=== PATIENT | female | born 1990 | race Caucasian/White ===

== ENCOUNTER 2020-07-07 07:50 | Emergency (ER) | payer OTHER, SELFPAY ==
--- NOTE | 2020-07-07 | US_ITS ---
EXAMINATION: ULTRASOUND OF THE PELVIS CLINICAL INFORMATION: Left pelvic pain. Rule out cyst. COMPARISON: CT 05/27/2019. TECHNIQUE: Transabdominal and transvaginal pelvic ultrasound. Doppler evaluation with spectral analysis was performed. A transvaginal study was performed in addition to the transabdominal study which did not yield an adequate examination of the uterus and ovaries due to superimposed distended gas-filled loops of bowel. FINDINGS: The uterus is normal in size and appearance, measuring 7.9 x 4.5 x 4.6 cm longitudinally, anteroposteriorly and transversely. The endometrial stripe thickness is normal, measuring 0.7 cm in thickness. No focal myometrial mass is seen. Nabothian cysts at the cervix. Fluid in the cervix. The ovaries bilaterally are visualized and appear normal, with the right ovary measuring 2.7 x 1.3 x 1.8 cm and the left ovary measuring 3.5 x 2.6 x 2.3 cm. There are normal arterial and venous spectral waveforms bilaterally. Dominant left ovarian follicle measures 2.4 cm. Small volume of pelvic free fluid. US/US transvaginal IMPRESSION: No evidence of active ovarian torsion at this time. Multiple left ovarian follicles with the dominant follicle measuring up to 2.4 cm. No suspicious mass. Small volume of pelvic free fluid may be physiologic.
--- NOTE | ~2020-07-07 | CT_ITS ---
EXAMINATION: CT ABDOMEN AND PELVIS WITHOUT CONTRAST CLINICAL INFORMATION: Left flank pain. Rule out kidney stone. COMPARISON: 05/27/2019 TECHNIQUE: Multidetector volumetric imaging was performed from the superior aspect of the liver through the pubic symphysis. Sagittal and coronal reformatted images were obtained on the technologist's workstation. This CT examination was performed using dose optimization techniques as appropriate, variously including the following: *Automated exposure control *Adjustment of mA and/or kV according to patient size (this includes techniques or standardized protocols for targeted exams where dose is matched to indication/reason for exam; i.e. extremities or head) *Use of iterative reconstruction technique DLP: 1237 mGy-cm FINDINGS: LUNG BASES: The visualized lung bases are unremarkable. LIVER, GALLBLADDER, AND BILIARY TREE: The liver is normal in size, shape, and attenuation. No focal hepatic lesion or biliary ductal dilatation is present. Cholecystectomy. PANCREAS: Unremarkable. SPLEEN: Unremarkable. ADRENAL GLANDS: Unremarkable. KIDNEYS AND URETERS: The kidneys are normal in size, shape, and attenuation. No hydronephrosis, hydroureter, or calculi seen. No perinephric stranding. BLADDER: Unremarkable. GASTROINTESTINAL TRACT: The stomach is unremarkable. Normal caliber small bowel. There is no obstruction. Normal appendix. There is colonic diverticulosis present, greatest through the descending and sigmoid colon. There is focal wall thickening with an inflamed diverticulum at the descending colon. Prominent surrounding inflammation with small amount of fluid. No fluid collection. No free air. ABDOMINAL WALL: No significant hernia is appreciated. LYMPH NODES: Normal. VASCULAR: Unremarkable. PELVIC VISCERA: The uterus and adnexa are unremarkable. OSSEOUS STRUCTURES: No acute or suspicious osseous abnormality. Mild degenerative changes at the lower thoracic spine. CT/CT abdomen pelvis wo con IMPRESSION: Diverticulitis of the descending colon. No free air or fluid collection. No hydronephrosis or nephrolithiasis.
[2020-07-07 09:05] VITALS: BP 132/82; PULSE 82; RESP 18; TEMP 36.8; O2SAT 100; BMI 49.2
--- NOTE | 2020-07-07 09:57 | US_ITS ---
EXAMINATION: ULTRASOUND OF THE PELVIS CLINICAL INFORMATION: Left pelvic pain. Rule out cyst. COMPARISON: CT 05/27/2019. TECHNIQUE: Transabdominal and transvaginal pelvic ultrasound. Doppler evaluation with spectral analysis was performed. A transvaginal study was performed in addition to the transabdominal study which did not yield an adequate examination of the uterus and ovaries due to superimposed distended gas-filled loops of bowel. FINDINGS: The uterus is normal in size and appearance, measuring 7.9 x 4.5 x 4.6 cm longitudinally, anteroposteriorly and transversely. The endometrial stripe thickness is normal, measuring 0.7 cm in thickness. No focal myometrial mass is seen. Nabothian cysts at the cervix. Fluid in the cervix. The ovaries bilaterally are visualized and appear normal, with the right ovary measuring 2.7 x 1.3 x 1.8 cm and the left ovary measuring 3.5 x 2.6 x 2.3 cm. There are normal arterial and venous spectral waveforms bilaterally. Dominant left ovarian follicle measures 2.4 cm. Small volume of pelvic free fluid. US/US pelvic complete IMPRESSION: No evidence of active ovarian torsion at this time. Multiple left ovarian follicles with the dominant follicle measuring up to 2.4 cm. No suspicious mass. Small volume of pelvic free fluid may be physiologic.
--- NOTE | 2020-07-07 09:57 | US_ITS ---
EXAMINATION: ULTRASOUND OF THE PELVIS CLINICAL INFORMATION: Left pelvic pain. Rule out cyst. COMPARISON: CT 05/27/2019. TECHNIQUE: Transabdominal and transvaginal pelvic ultrasound. Doppler evaluation with spectral analysis was performed. A transvaginal study was performed in addition to the transabdominal study which did not yield an adequate examination of the uterus and ovaries due to superimposed distended gas-filled loops of bowel. FINDINGS: The uterus is normal in size and appearance, measuring 7.9 x 4.5 x 4.6 cm longitudinally, anteroposteriorly and transversely. The endometrial stripe thickness is normal, measuring 0.7 cm in thickness. No focal myometrial mass is seen. Nabothian cysts at the cervix. Fluid in the cervix. The ovaries bilaterally are visualized and appear normal, with the right ovary measuring 2.7 x 1.3 x 1.8 cm and the left ovary measuring 3.5 x 2.6 x 2.3 cm. There are normal arterial and venous spectral waveforms bilaterally. Dominant left ovarian follicle measures 2.4 cm. Small volume of pelvic free fluid. US/US pelvic ovarian doppler IMPRESSION: No evidence of active ovarian torsion at this time. Multiple left ovarian follicles with the dominant follicle measuring up to 2.4 cm. No suspicious mass. Small volume of pelvic free fluid may be physiologic.
--- NOTE | 2020-07-07 09:58 | ED.GENADULT ---
HPI - General Adult General Chief complaint: Abdominal Pain Stated complaint: abd pain Time Seen by Provider: 07/07/20 09:55 Related Data Allergies Allergy/AdvReac Type Severity Reaction Status Date / Time No Known Allergies Allergy Verified 07/07/20 09:04 [No Known Allergies*] PENDING SALE TO [facility] Past Medical History Medical History (Updated 07/07/20 @ 09:08 by Maren Linares) Fibromyalgia Hiatal hernia Ovarian cyst PCOS (polycystic ovarian syndrome) Social History Social History Alcohol intake: never Smoking Status: Never smoker Use of substances other than those prescribed or required for medical reasons: Yes Substance Use Type: Marijuana Advance Directives: No Advance Directives Information Provided: No Physical Exam Vital Signs: Vital Signs: Last Vital Signs Temp 98.3 F 07/07/20 09:05 Pulse 82 07/07/20 09:05 Resp 18 07/07/20 09:05 BP 132/82 07/07/20 09:05 Pulse Ox 100 07/07/20 09:05 Body Mass Index 49.2 Course Course Course Narrative: [id number]-This is rapid medical exam. 29 yo female with past medical history of PCOS, ovarian cysts here with left pelvic pain x 5-6 hrs. H/o ovarian cysts and feels similar. Irregular menses so unsure of . Will check labs, UA, ur , pelvic US. Deferred additional HPI, ROS and PE to primary provider.
[2020-07-07 10:20] LABS: Glucose Urine UA NEG (NEG); Leukocyte Esterase Urine NEG (NEG); Nitrite Urine NEG (NEG); PH 6.5 (5.0-8.0); Specific Gravity - Urine 1.025 (1.005-1.025); Urine Blood NEG (NEG); Urine Ketones NEG (NEG); Urine Protein NEG (NEG-TRACE)
[2020-07-07 10:22] LABS: Appearance Urine CLEAR; Color Urine YELLOW
[2020-07-07 10:23] LABS: UPreg QC Valid YES; Urine Pregnancy NEGATIVE (NEGATIVE)
[2020-07-07 10:44] LABS: MANUAL DIFF FLAG NO
[2020-07-07 10:47] LABS: Basophils Percent Auto 0.2 % (0-2); Eosinophils Absolute Auto 0.1 X10*3/uL (0.0-0.4); Eosinophils Percent Auto 0.7 % (0-4); Hematocrit 38.4 % (37-47); Hemoglobin 11.9 g/dl (12.0-16.0); Imm Gran Abs Auto 0.04 X10*3/uL (0.00-0.03); Imm Gran Pct Auto 0.3 % (0.0-0.4); Lymphocytes Absolute Auto 2.6 X10*3/uL (1.2-4.9); Lymphocytes Percent Auto 20.9 % (20-40); Mean Corpuscular Hemoglobin 24.6 pg (27.0-33.0); Mean Corpuscular Volume 79.3 fL (80-98); Mean Platelet Volume 10.7 fL (9.4-12.3); Monocytes Absolute Auto 0.6 X10*3/uL (0.1-1.2); Monocytes Percent Auto 4.9 % (2-11); Platelet Count 254 X10*3/uL (160-400); Red Blood Count 4.84 X10*6/uL (4.20-5.50); Red Cell Distribution Width 15.1 % (11.0-16.0); White Blood Count 12.3 X10*3/uL (4.8-10.8)
[2020-07-07 11:07] LABS: Anion Gap 13 (12-20); Blood Urea Nitrogen 11 mg/dL (9-16); Calcium 8.5 mg/dL (8.4-10.2); Carbon Dioxide 27 mmol/L (22-29); Chloride 100 mmol/L (96-108); Creatinine Clr Calc Pharmacy 150.9; Estimated Glomerular Filt Rate > 60; Glucose Random 109 mg/dL (60-115); Potassium 4.1 mmol/L (3.3-5.1); Sodium 136 mmol/L (135-145)
--- NOTE | 2020-07-07 13:50 | ED.ABDPAIN ---
HPI - Abdominal Pain General Chief Complaint: Abdominal Pain Stated Complaint: abd pain Time Seen by Provider: 07/07/20 09:55 Source: patient Mode of arrival: ambulatory Limitations: no limitations History of Present Illness HPI narrative: 29-year-old female presented with 1 day of left-sided abdominal pain, patient describes the pain as sharp pain in the left lower abdomen radiates to the left flank area, pain is constant since yesterday and progressively is worsening pain started as 5/10 now pain is 9/10, associated with nausea and pressure in the rectum area but no vomiting or diarrhea or frequency urination or dysuria, no vaginal bleed, no vaginal discharge. Pain is worsening by taking a deep breath or movement, nothing relieves the pain. Related Data Previous Rx's Medication Instructions Recorded ciprofloxacin HCl [Cipro] 500 mg PO BID #20 tab 07/07/20 metronidazole [Flagyl] 500 mg PO BID #20 tab 07/07/20 oxycodone 5 mg PO Q8H PRN #10 cap 07/07/20 Allergies Allergy/AdvReac Type Severity Reaction Status Date / Time No Known Allergies Allergy Verified 07/07/20 09:04 [No Known Allergies*] Review of Systems Review of Systems All other systems are reviewed and are negative Constitutional: Reports as per HPI and Reports no additional constitutional complaints Eyes: Reports as per HPI and Reports no additional eye complaints Reports system reviewed and no additional complaints, except as documented Cardiovascular: Reports as per HPI and Reports no additional cardiovascular complaints Respiratory: Reports as per HPI and Reports no additional respiratory complaints Gastrointestinal: Reports as per HPI and Reports no additional gastrointestinal complaints Genitourinary: Reports no additional female genitourinary complaints Musculoskeletal: Reports no additional musculoskeletal complaints Skin/Breast: Reports system reviewed and no additional complaints, except as docu Psychiatric: Reports no additional psychiatric complaints Endocrine: Reports no additional endocrine complaints Hematologic/Lymphatic: Reports no additional hematologic/lymphatic complaints Allergic/Immunologic: Reports no additional allergic/immunologic complaints Reports system reviewed and no additional complaints, except as documented and Reports Abnormal speech present Physical Exam Vital Signs: Vital Signs: Last Vital Signs Temp 98.5 F 07/07/20 14:36 Pulse 109 H 07/07/20 14:36 Resp 18 07/07/20 15:06 BP 150/87 H 07/07/20 14:36 Pulse Ox 100 07/07/20 14:36 Body Mass Index 49.2 Vital signs have been reviewed as normal and appeared to be correct. Blood pressure normal. Heart rate normal. Respiration rate normal. Temperature normal. Oxygen saturation normal. Appearance: Alert. Oriented X3. No acute distress. Head: Normal external exam. Normocephalic. Atraumatic. No Aranda signs noted. No raccoon eyes noted Eyes: PERRLA. EOMI. Conjunctiva and sclera normal. Eyelids normal. ENT: . TM's Normal. Pharynx normal. Uvula midline. Moist mucous membranes. No trismus noted. No drooling noted. No muffled voice noted. Neck: Normal inspection. Neck supple. FROM. No adenopathy. Thyroid Normal. No meningeal signs. No neck mass noted. CVS: Normal heart rate and rhythm. Heart sound normal. No murmurs noted. Pulses normal throughout. Respiratory: No respiratory distress. Painless inspiration. Breath sounds normal. No wheezes/rales/rhonchi noted. Chest nontender. No accessory muscle usage noted or decreased air movement noted. Abdomen: Soft, left lower quadrant tenderness, no rebound tenderness, no guarding.. Bowel sounds normal in all 4 quadrants. No distention noted. No organomegaly noted. No visible injury noted. Back: No CVA tenderness. Full range of motion noted. Skin: Skin warm and dry. Normal skin color. Normal skin turgor. No rashes/lesions/lacerations noted. Extremities: No lower extremity edema. Extremities exhibit normal range of motion. Extremities nontender. Neuro: Oriented X 3. No motor deficit. No sensory deficit. Reflexes normal. Course Course Course Narrative: Assessment and plan. 29-year-old female came in with left-sided abdominal pain CT/physical exam is consistent with acute diverticulitis. Patient appear stable will discharge the patient on p.o. antibiotic (Flagyl, Cipro) and pain medication, patient was instructed to continue with clear diet and avoid any foods with seeds. Patient also was instructed to follow-up with PCP and get elective follow-up with GI outpatient consultation. Patient was instructed to return immediately if pain is not going away or worsening of her symptoms. MDM - Abdominal Pain Lab Data Attestation: I reviewed the patient's lab results. Result diagrams: 07/07/20 10:30 07/07/20 10:30 Labs: Lab Results 02/09/2107/07/20 07/07/20 Range/Units 10:09 10:30 10:30 WBC 12.3 H (4.8-10.8) X10*3/uL RBC 4.84 (4.20-5.50) X10*6/uL Hgb 11.9 L (12.0-16.0) g/dl Hct 38.4 (37-47) % MCV 79.3 L (80-98) fL MCH 24.6 L (27.0-33.0) pg MCHC 31.0 (31.0-35.0) g/dl RDW 15.1 (11.0-16.0) % Plt Count 254 (160-400) X10*3/uL MPV 10.7 (9.4-12.3) fL Immature Gran % (Auto) 0.3 (0.0-0.4) % Neut % (Auto) 73.0 (45-73) % Lymph % (Auto) 20.9 (20-40) % [place] % (Auto) 4.9 (2-11) % Eos % (Auto) 0.7 (0-4) % Baso % (Auto) 0.2 (0-2) % Lymph # (Auto) 2.6 (1.2-4.9) X10*3/uL [place] # (Auto) 0.6 (0.1-1.2) X10*3/uL Eos # (Auto) 0.1 (0.0-0.4) X10*3/uL Baso # (Auto) 0.0 (0.0-0.2) X10*3/uL Abs Immat Gran (auto) 0.04 H (0.00-0.03) X10*3/uL Absolute Neuts (auto) 9.0 H (2.0-8.3) X10*3/uL Absolute Nucleated RBC 0.000 (0.0-0.012) X10*3/uL Nucleated RBC % (auto) 0.0 (0.0-0.2) /100WBC Hold Blue Top SEE NOTE Sodium (135-145) mmol/L Potassium (3.3-5.1) mmol/L Chloride (96-108) mmol/L Carbon Dioxide (22-29) mmol/L Anion Gap (12-20) BUN (9-16) mg/dL Creatinine (0.5-1.4) mg/dL Estim Creat Clear Calc Estimated GFR Random Glucose (60-115) mg/dL Calcium (8.4-10.2) mg/dL Total Bilirubin (0.0-1.0) mg/dL Direct Bilirubin (0.0-0.5) mg/dL AST (5-31) U/L ALT (0-31) U/L Alkaline Phosphatase (39-117) U/L Total Protein (6.5-8.0) g/dL Albumin (3.5-5.0) g/dL Lipase (8-78) U/L Urine Color YELLOW Urine Appearance CLEAR Urine pH 6.5 (5.0-8.0) Ur Specific Jackson 1.025 (1.005-1.025) Urine Protein NEG (NEG-TRACE) MG/DL Urine Glucose (UA) NEG (NEG) MG/DL Urine Ketones NEG (NEG) MG/DL Urine Blood NEG (NEG) Urine Nitrite NEG (NEG) Ur Leukocyte Esterase NEG (NEG) Urine Test NEGATIVE (NEGATIVE) 07/07/20 Range/Units 10:30 WBC (4.8-10.8) X10*3/uL RBC (4.20-5.50) X10*6/uL Hgb (12.0-16.0) g/dl Hct (37-47) % MCV (80-98) fL MCH (27.0-33.0) pg MCHC (31.0-35.0) g/dl RDW (11.0-16.0) % Plt Count (160-400) X10*3/uL MPV (9.4-12.3) fL Immature Gran % (Auto) (0.0-0.4) % Neut % (Auto) (45-73) % Lymph % (Auto) (20-40) % [place] % (Auto) (2-11) % Eos % (Auto) (0-4) % Baso % (Auto) (0-2) % Lymph # (Auto) (1.2-4.9) X10*3/uL [place] # (Auto) (0.1-1.2) X10*3/uL Eos # (Auto) (0.0-0.4) X10*3/uL Baso # (Auto) (0.0-0.2) X10*3/uL Abs Immat Gran (auto) (0.00-0.03) X10*3/uL Absolute Neuts (auto) (2.0-8.3) X10*3/uL Absolute Nucleated RBC (0.0-0.012) X10*3/uL Nucleated RBC % (auto) (0.0-0.2) /100WBC Hold Blue Top Sodium 136 (135-145) mmol/L Potassium 4.1 (3.3-5.1) mmol/L Chloride 100 (96-108) mmol/L Carbon Dioxide 27 (22-29) mmol/L Anion Gap 13 (12-20) BUN 11 (9-16) mg/dL Creatinine 0.77 (0.5-1.4) mg/dL Estim Creat Clear Calc 150.9 Estimated GFR > 60 Random Glucose 109 (60-115) mg/dL Calcium 8.5 (8.4-10.2) mg/dL Total Bilirubin 0.5 (0.0-1.0) mg/dL Direct Bilirubin 0.2 (0.0-0.5) mg/dL AST 16 (5-31) U/L ALT 18 (0-31) U/L Alkaline Phosphatase 118 H (39-117) U/L Total Protein 7.1 (6.5-8.0) g/dL Albumin 4.1 (3.5-5.0) g/dL Lipase 14 (8-78) U/L Urine Color Urine Appearance Urine pH (5.0-8.0) Ur Specific Jackson (1.005-1.025) Urine Protein (NEG-TRACE) MG/DL Urine Glucose (UA) (NEG) MG/DL Urine Ketones (NEG) MG/DL Urine Blood (NEG) Urine Nitrite (NEG) Ur Leukocyte Esterase (NEG) Urine Test (NEGATIVE) Imaging Data Pelvic ultrasound: Radiologist's impression: No evidence of active ovarian torsion at this time. Multiple left ovarian follicles with the dominant follicle measuring up to 2.4 cm. No suspicious mass. Small volume of pelvic free fluid may be physiologic. CT scan - abdomen: Radiologist's impression: Diverticulitis of the descending colon. No free air or fluid collection. No hydronephrosis or nephrolithiasis. Discharge Plan Discharge Clinical Impression: Diverticulitis Patient Disposition: Home, Self-Care Instructions: Diverticulitis (ED), Diverticulitis Diet (ED) Additional Instructions: As discussed, return to the emergency department if worsening of symptoms of persistent of the pain or developing any new symptoms like nausea or vomiting or fever. Call your primary doctor to get outpatient GI consultation. Prescriptions: New ciprofloxacin HCl [Cipro] 500 mg tablet 500 mg PO BID Qty: 20 RF: 0 metronidazole [Flagyl] 500 mg tablet 500 mg PO BID Qty: 20 RF: 0 oxycodone 5 mg capsule 5 mg PO Q8H PRN (Reason: pain) Qty: 10 RF: 0 Referrals: Veronique Frederick NP [Primary Care Provider] - 2 days Jaclyn Carlin MD [Physician] - 2 days PMF Past Medical History Source: unable to obtain Medical History Fibromyalgia Hiatal hernia Ovarian cyst PCOS (polycystic ovarian syndrome) Social History Social History Alcohol intake: never Smoking Status: Never smoker Use of substances other than those prescribed or required for medical reasons: Yes Substance Use Type: Marijuana Advance Directives: No Advance Directives Information Provided: No
[2020-07-07 14:33] LABS: Alanine Aminotransferase 18 U/L (0-31); Albumin Level 4.1 g/dL (3.5-5.0); Alkaline Phosphatase 118 U/L (39-117); Aspartate Amino Transferase 16 U/L (5-31); Bilirubin Direct 0.2 mg/dL (0.0-0.5); Bilirubin Total 0.5 mg/dL (0.0-1.0); Lipase 14 U/L (8-78); Total Protein 7.1 g/dL (6.5-8.0)
[2020-07-07 14:36] VITALS: BP 150/87; PULSE 109; RESP 18; TEMP 36.9; O2SAT 100
[2020-07-07] MEDS: 0.9 % Sodium Chloride 1,000 ML 999 ML IVCONT (15:05)
[2020-07-07 15:06] VITALS: RESP 18
[2020-07-07] MEDS: Ketorolac Tromethamine 15 MG/ML VIAL IV (15:06)
[2020-07-07] MEDS: Morphine Sulfate 2 MG/ML CARTRIDGE IVPUSH (15:06)
[2020-07-07] MEDS: levoFLOXacin 500 MG TABLET PO (16:04)
[2020-07-07] MEDS: metroNIDAZOLE 500 MG TABLET PO (16:04)
[2020-07-07 16:07] VITALS: BP 113/44; PULSE 86; RESP 18; O2SAT 99
[2020-07-07 16:24] LABS: Lactic Acid 0.8 mmol/L (0.5-2.0)
== END 2020-07-07 16:15 | disposition home or self-care (01) ==
PROVIDERS: Nurse Practitioner Family; Emergency Provider Emergency Medicine; PCP Nurse Practitioner Family
DX: K57.32 Diverticulitis of large intestine without perforation or abscess without bleeding (principal); R10.2 Pelvic and perineal pain; Z79.899 Other long term (current) drug therapy
CPT/HCPCS: 36415; 74176; 76830; 76856; 80048; 80076; 81003; 81025; 83605; 83690; 85025; 87040; 93975; 96361; 96374; 96375; 99284; J1885; J2270

== ENCOUNTER → 2021-03-16 12:22 | Outpatient (BNVA) | payer OTHER, SELFPAY | PROVIDERS: PCP Nurse Practitioner Family; Visit Provider Physician Assistant ==

== ENCOUNTER 2021-04-18 00:36 | Emergency (ER) | payer OTHER, SELFPAY ==
--- NOTE | ~2021-04-18 | XR_ITS ---
EXAMINATION: XR CHEST CLINICAL INFORMATION: Cough COMPARISON: None TECHNIQUE: 2 views of the chest were obtained. FINDINGS: The lungs are clear with no focal consolidation. No evidence of pneumothorax, pulmonary edema, or pleural effusions. The cardiomediastinal silhouette is unremarkable. No acute osseous findings. XR/XR chest 2V IMPRESSION: No acute cardiopulmonary findings.
--- NOTE | ~2021-04-18 | CT_ITS ---
EXAMINATION: CT ABDOMEN AND PELVIS WITH CONTRAST CLINICAL INFORMATION: Left lower quadrant flank pain COMPARISON: 07/07/2020 TECHNIQUE: Multidetector volumetric images were obtained from the superior aspect of the liver through the pubic symphysis following administration 85 mL of Omnipaque 350 intravenous contrast. Sagittal and coronal reformatted images were obtained on the technologist's workstation. Oral contrast: No This CT examination was performed using dose optimization techniques as appropriate, variously including the following: *Automated exposure control *Adjustment of mA and/or kV according to patient size (this includes techniques or standardized protocols for targeted exams where dose is matched to indication/reason for exam; i.e. extremities or head) *Use of iterative reconstruction technique DLP: 1295 mGy-cm FINDINGS: LUNG BASES: The visualized lung bases are unremarkable. LIVER, GALLBLADDER, AND BILIARY TREE: The liver is normal in size, shape, and attenuation. No focal hepatic lesion or biliary ductal dilatation is present. Patient is status post cholecystectomy. PANCREAS: Unremarkable. SPLEEN: Unremarkable. ADRENAL GLANDS: Unremarkable. KIDNEYS AND URETERS: The kidneys are normal in size, shape, and attenuation. No hydronephrosis, hydroureter, or obstructing calculi seen. No perinephric stranding. BLADDER: Unremarkable. GASTROINTESTINAL TRACT: There is mild colonic diverticulosis without diverticulitis. The small and large bowel are otherwise unremarkable. The appendix is unremarkable. No free fluid or free air is seen. ABDOMINAL WALL: No significant hernia is appreciated. LYMPH NODES: Normal. VASCULAR: Unremarkable. PELVIC VISCERA: Unremarkable. OSSEOUS STRUCTURES: Unremarkable. CT/CT abdomen pelvis w con IMPRESSION: No acute findings identified in the abdomen/pelvis.
[2021-04-18 00:44] VITALS: BP 140/89; PULSE 115; RESP 18; TEMP 36.6; O2SAT 99; BMI 53.4
[2021-04-18 01:00] LABS: Appearance Urine CLEAR; Color Urine YELLOW; Glucose Urine UA NEG (NEG); Leukocyte Esterase Urine NEG (NEG); Nitrite Urine NEG (NEG); Specific Gravity - Urine >= 1.030 (1.005-1.025); Urine Blood NEG (NEG); Urine Ketones NEG (NEG); Urine Protein NEG (NEG-TRACE)
[2021-04-18 01:03] LABS: UPreg QC Valid YES; Urine Pregnancy NEGATIVE (NEGATIVE)
[2021-04-18 01:24] LABS: MANUAL DIFF FLAG NO
--- NOTE | 2021-04-18 01:24 | ED.GENADULT ---
HPI - General Adult General Chief complaint: Abdominal Pain Stated complaint: kidney pain Time Seen by Provider: 04/18/21 01:14 Source: patient Mode of arrival: ambulatory Limitations: no limitations History of Present Illness HPI narrative: Patient comes to the emergency room complaining of left flank radiating towards the right lower quadrant pain since yesterday. Patient describes the pain as a twisting sensation. Patient complaining of mild urinary discomfort, no hematuria, no fever chills. Patient denies any history of kidney stones. However, patient does have history of ovarian cysts and diverticulitis. Patient denies vomiting or diarrhea. Related Data Home Medications Medication Instructions Recorded Confirmed amitriptyline 50 mg tablet 50 mg PO DAILY 03/16/21 metformin 500 mg tablet 500 mg PO TID 03/16/21 metoprolol tartrate 25 mg tablet 25 mg PO DAILY 03/16/21 omeprazole 40 mg capsule,delayed 40 mg PO DAILY 03/16/21 release Previous Rx's Medication Instructions Recorded ciprofloxacin HCl 500 mg tablet 500 mg PO BID #20 tab 07/07/20 (Cipro) metronidazole 500 mg tablet 500 mg PO BID #20 tab 07/07/20 (Flagyl) oxycodone 5 mg capsule 5 mg PO Q8H PRN #10 cap 07/07/20 Allergies Allergy/AdvReac Type Severity Reaction Status Date / Time amoxicillin Allergy Severe Anaphylaxis Verified 03/16/21 12:42 banana Allergy Severe Anaphylaxis Verified 03/16/21 12:42 latex Allergy Severe Anaphylaxis Verified 03/16/21 12:42 Review of Systems Review of Systems: Constitutional : No Weight loss, No Fever, No Chills, No Night Sweats, No Fatigue, No Malaise ENT/Mouth : No Hearing loss, No Ear Pain, No Nasal Congestion, No Sinus Pain, No Hoarseness, No sore throat, No Rhinorrhea, No Swallowing Difficulty Eyes: No Eye Pain, No Swelling, No Redness, No Foreign Body, No Discharge, No Vision Changes Cardiovascular : No Chest Pain, No SOB, No Dyspnea on Exertion, No Orthopnea, No Edema, No Palpitations Respiratory : No Cough, No Sputum, No Wheezing, No Smoke Exposure, No Dyspnea Gastrointestinal : No Nausea, No Vomiting, No Diarrhea, No Constipation, complaining of left flank pain radiating towards to left lower quadrant . No Hematochezia, No Melena Genitourinary : no irregular bleeding, discomfort with urination, No Urinary Frequency, No Hematuria, No Urinary Incontinence, No Urgency, No Flank Pain, No Urinary Flow Changes, No Hesitancy Musculoskeletal : No joint pain, No Myalgias, No Joint Swelling Skin : No Skin Lesions, No rash Neuro : No Weakness, No Numbness, No Paresthesias, No Loss of Consciousness, No Dizziness, No Headache Psych : No Anxiety/Panic, No Depression, No SI/HI/AH/VH, No Social Issues, Heme/Lymph: No Bruising, No Bleeding,No Lymphadenopathy Endocrine : No Polyuria, No Polydipsia, No Temperature Intolerance [facility] Past Medical History Medical History Fibromyalgia Hiatal hernia Ovarian cyst PCOS (polycystic ovarian syndrome) Surgical History Hx of section Hx of cholecystectomy Hx of colonoscopy Hx of endoscopy Hx of removal of cyst Family History Family History (Updated 03/16/21 @ 12:49 by Evelio Price Luis Enrique) Mother No problems noted. Father No problems noted. Brother No problems noted. Brother No problems noted. Brother No problems noted. Brother No problems noted. Brother No problems noted. Brother No problems noted. Brother No problems noted. Brother No problems noted. Sister No problems noted. Sister No problems noted. Sister No problems noted. Sister No problems noted. Sister No problems noted. Sister No problems noted. Son No problems noted. Social History Social History (Updated 03/16/21 @ 12:49 by Evelio Price Luis Enrique) Alcohol intake: current Alcohol intake frequency: holidays/special occasions only Substance Use Type: Marijuana Advance Directives: No Advance Directives Information Provided: Yes Patient : No Physical Exam Vital Signs: Vital Signs: Last Vital Signs Temp 98 F 04/18/21 00:44 Pulse 115 H 04/18/21 00:44 Resp 18 04/18/21 00:44 BP 140/89 H 04/18/21 00:44 Pulse Ox 99 04/18/21 00:44 Body Mass Index 53.4 Const: Other: Appearance: Alert. Oriented X3. No acute distress. Well-appearing Eyes: Pupils equal, round and reactive to light. ENT: Pharynx normal. Neck: Normal inspection. Neck supple. No lymph nodes noted. No crepitus CVS: Normal heart rate and rhythm. Pulses normal. Normal S1 and S2 Respiratory: No respiratory distress. Breath sounds normal. No Wheezing. No rales Abdomen: Soft , no tenderness to palpation over the left lower quadrant, patient does have mild left flank pain. No rigidity. No distention. Skin: Skin warm and dry. Normal skin color. Normal skin turgor. Extremities: No lower extremity edema. No Lacerations. No Rash Neuro: Oriented X 3. No motor deficit. No sensory deficit. Moving all extermities. No slurred speech. Course Course Course Narrative: Patient has no actual abdominal pain, seems that most of the pain is posterior/left flank pain. Patient may be having muscular spasms. However, differential includes ureterolithiasis, ovarian cyst, ovarian torsion, diverticulitis. Patient was given 1 dose of IV Toradol. All of her labs are pending. CT scan pending. Patient may need a pelvic ultrasound. Sign out given to Dr. Soni Medical Decision Making Lab Data Result diagrams: 04/18/21 01:20 04/18/21 01:20 Labs: Lab Results 04/18/21 04/18/21 04/18/21 Range/Units 00:54 00:54 01:20 WBC 11.1 H (4.8-10.8) X10*3/uL RBC 4.59 (4.20-5.50) X10*6/uL Hgb 11.0 L (12.0-16.0) g/dl Hct 35.1 L (37.0-47.0) % MCV 76.5 L (80.0-98.0) fL MCH 24.0 L (27.0-33.0) pg MCHC 31.3 (31.0-35.0) g/dl RDW 15.4 (11.0-16.0) % Plt Count 289 (160-400) X10*3/uL MPV 10.6 (9.4-12.3) fL Immature Gran % (Auto) 0.4 (0.0-0.4) % Neut % (Auto) 54.7 (45-73) % Lymph % (Auto) 37.5 (20-40) % [place] % (Auto) 5.9 (2-11) % Eos % (Auto) 1.2 (0-4) % Baso % (Auto) 0.3 (0-2) % Lymph # (Auto) 4.2 (1.2-4.9) X10*3/uL [place] # (Auto) 0.7 (0.1-1.2) X10*3/uL Eos # (Auto) 0.1 (0.0-0.4) X10*3/uL Baso # (Auto) 0.0 (0.0-0.2) X10*3/uL Abs Immat Gran (auto) 0.04 H (0.00-0.03) X10*3/uL Absolute Neuts (auto) 6.1 (2.0-8.3) x10*3/uL Absolute Nucleated RBC 0.000 (0.0-0.012) X10*3/uL Nucleated RBC % (auto) 0.0 (0.0-0.2) /100WBC Sodium (135-145) mmol/L Potassium (3.3-5.1) mmol/L Chloride (96-108) mmol/L Carbon Dioxide (22-29) mmol/L Anion Gap (12-20) BUN (9-16) mg/dL Creatinine (0.5-1.4) mg/dL Estim Creat Clear Calc Estimated GFR Random Glucose (60-115) mg/dL Calcium (8.4-10.2) mg/dL Total Bilirubin (0.0-1.0) mg/dL Direct Bilirubin (0.0-0.5) mg/dL AST (5-31) U/L ALT (0-31) U/L Alkaline Phosphatase (39-117) U/L Total Protein (6.5-8.0) g/dL Albumin (3.5-5.0) g/dL Urine Color YELLOW Urine Appearance CLEAR Urine pH 6.0 (5.0-8.0) Ur Specific [place] >= 1.030 H (1.005-1.025) Urine Protein NEG (NEG-TRACE) MG/DL Urine Glucose (UA) NEG (NEG) MG/DL Urine Ketones NEG (NEG) MG/DL Urine Blood NEG (NEG) Urine Nitrite NEG (NEG) Ur Leukocyte Esterase NEG (NEG) Urine Test NEGATIVE (NEGATIVE) 04/18/21 Range/Units 01:20 WBC (4.8-10.8) X10*3/uL RBC (4.20-5.50) X10*6/uL Hgb (12.0-16.0) g/dl Hct (37.0-47.0) % MCV (80.0-98.0) fL MCH (27.0-33.0) pg MCHC (31.0-35.0) g/dl RDW (11.0-16.0) % Plt Count (160-400) X10*3/uL MPV (9.4-12.3) fL Immature Gran % (Auto) (0.0-0.4) % Neut % (Auto) (45-73) % Lymph % (Auto) (20-40) % [place] % (Auto) (2-11) % Eos % (Auto) (0-4) % Baso % (Auto) (0-2) % Lymph # (Auto) (1.2-4.9) X10*3/uL [place] # (Auto) (0.1-1.2) X10*3/uL Eos # (Auto) (0.0-0.4) X10*3/uL Baso # (Auto) (0.0-0.2) X10*3/uL Abs Immat Gran (auto) (0.00-0.03) X10*3/uL Absolute Neuts (auto) (2.0-8.3) x10*3/uL Absolute Nucleated RBC (0.0-0.012) X10*3/uL Nucleated RBC % (auto) (0.0-0.2) /100WBC Sodium 136 (135-145) mmol/L Potassium 3.9 (3.3-5.1) mmol/L Chloride 102 (96-108) mmol/L Carbon Dioxide 27 (22-29) mmol/L Anion Gap 11 L (12-20) BUN 15 (9-16) mg/dL Creatinine 1.03 (0.5-1.4) mg/dL Estim Creat Clear Calc 117.6 Estimated GFR > 60 Random Glucose 120 H (60-115) mg/dL Calcium 9.1 D (8.4-10.2) mg/dL Total Bilirubin 0.2 (0.0-1.0) mg/dL Direct Bilirubin < 0.2 (0.0-0.5) mg/dL AST 20 (5-31) U/L ALT 28 (0-31) U/L Alkaline Phosphatase 119 H (39-117) U/L Total Protein 7.0 (6.5-8.0) g/dL Albumin 4.1 (3.5-5.0) g/dL Urine Color Urine Appearance Urine pH (5.0-8.0) Ur Specific [place] (1.005-1.025) Urine Protein (NEG-TRACE) MG/DL Urine Glucose (UA) (NEG) MG/DL Urine Ketones (NEG) MG/DL Urine Blood (NEG) Urine Nitrite (NEG) Ur Leukocyte Esterase (NEG) Urine Test (NEGATIVE) Discharge Plan Discharge Clinical Impression: Acute left flank pain Prescriptions: No Action ciprofloxacin HCl [Cipro] 500 mg tablet 500 mg PO BID Qty: 20 RF: 0 metronidazole [Flagyl] 500 mg tablet 500 mg PO BID Qty: 20 RF: 0 oxycodone 5 mg capsule 5 mg PO Q8H PRN (Reason: pain) Qty: 10 RF: 0 amitriptyline 50 mg tablet 50 mg PO DAILY RF: 0 omeprazole 40 mg capsule,delayed release(DR/EC) 40 mg PO DAILY RF: 0 metoprolol tartrate 25 mg tablet 25 mg PO DAILY RF: 0 metformin 500 mg tablet 500 mg PO TID RF: 0
[2021-04-18 01:25] LABS: Basophils Percent Auto 0.3 % (0-2); Eosinophils Absolute Auto 0.1 X10*3/uL (0.0-0.4); Eosinophils Percent Auto 1.2 % (0-4); Hematocrit 35.1 % (37.0-47.0); Imm Gran Abs Auto 0.04 X10*3/uL (0.00-0.03); Imm Gran Pct Auto 0.4 % (0.0-0.4); Lymphocytes Absolute Auto 4.2 X10*3/uL (1.2-4.9); Lymphocytes Percent Auto 37.5 % (20-40); Mean Corpuscular HGB Conc 31.3 g/dl (31.0-35.0); Mean Corpuscular Volume 76.5 fL (80.0-98.0); Mean Platelet Volume 10.6 fL (9.4-12.3); Monocytes Absolute Auto 0.7 X10*3/uL (0.1-1.2); Monocytes Percent Auto 5.9 % (2-11); Neutrophils Absolute Auto 6.1 x10*3/uL (2.0-8.3); Neutrophils Percent Auto 54.7 % (45-73); Platelet Count 289 X10*3/uL (160-400); Red Blood Count 4.59 X10*6/uL (4.20-5.50); Red Cell Distribution Width 15.4 % (11.0-16.0); White Blood Count 11.1 X10*3/uL (4.8-10.8)
[2021-04-18] MEDS: Ketorolac Tromethamine 15 MG/ML VIAL 30 MG IVPUSH (01:25)
--- NOTE | 2021-04-18 01:40 | PC.NURSE ---
pt c/o left sided abd pain. in room for eval. IV placed to RAC, labs drawn to lab. Pt medicated as per emar for pain rating 10/10. pt awaiting for Ct.
[2021-04-18 01:41] LABS: Alanine Aminotransferase 28 U/L (0-31); Albumin Level 4.1 g/dL (3.5-5.0); Alkaline Phosphatase 119 U/L (39-117); Anion Gap 11 (12-20); Aspartate Amino Transferase 20 U/L (5-31); Bilirubin Direct < 0.2 mg/dL (0.0-0.5); Bilirubin Total 0.2 mg/dL (0.0-1.0); Blood Urea Nitrogen 15 mg/dL (9-16); Calcium 9.1 mg/dL (8.4-10.2); Carbon Dioxide 27 mmol/L (22-29); Chloride 102 mmol/L (96-108); Creatinine Clr Calc Pharmacy 117.6; Estimated Glomerular Filt Rate > 60; Glucose Random 120 mg/dL (60-115); Potassium 3.9 mmol/L (3.3-5.1); Sodium 136 mmol/L (135-145)
[2021-04-18 02:00] VITALS: PULSE 82; RESP 18; O2SAT 99
[2021-04-18] MEDS: iohexoL 350 MG/ML 100 ML INFUS..BTL 85 ML IV (02:19)
--- NOTE | 2021-04-18 02:27 | PC.NURSE ---
pt returns from ct in nad. will continue to monitor pt.
--- NOTE | 2021-04-18 03:42 | PC.NURSE ---
pt resting in stretcher, respirations easy, n/l. skin w/d. will continue to monitor pt.
[2021-04-18 04:00] VITALS: BP 135/85; PULSE 84; RESP 18; O2SAT 99
== END 2021-04-18 05:22 | disposition home or self-care (01) ==
PROVIDERS: Emergency Provider Emergency Medicine
DX: R10.31 Right lower quadrant pain (principal); R05.9 Cough, unspecified; Z79.899 Other long term (current) drug therapy
CPT/HCPCS: 36415; 71046; 74177; 80053; 81003; 81025; 82248; 85025; 96374; 99284; J1885; Q9967

== ENCOUNTER → 2021-04-26 07:56 | Outpatient (BNVA) | payer OTHER, SELFPAY | PROVIDERS: Referring Provider Nurse Practitioner Family; Visit Provider Physician Assistant | DX: E66.01 Morbid (severe) obesity due to excess calories (principal); E28.2 Polycystic ovarian syndrome; F41.9 Anxiety disorder, unspecified; K21.9 Gastro-esophageal reflux disease without esophagitis; R73.03 Prediabetes; K44.9 Diaphragmatic hernia without obstruction or gangrene; M79.7 Fibromyalgia; Z68.43 Body mass index [BMI] 50.0-59.9, adult | CPT/HCPCS: 99202 ==

== ENCOUNTER → 2021-06-05 08:08 | Outpatient (BNVA) | payer OTHER, SELFPAY | PROVIDERS: PCP Nurse Practitioner Family; Visit Provider Dietitian, Registered ==

== ENCOUNTER 2025-03-07 02:56 | Emergency (ER) | payer MEDICAID, SELFPAY ==
[2025-03-07 03:09] VITALS: BP 128/73; PULSE 92; RESP 16; TEMP 36.6; O2SAT 98; BMI 52.1
[2025-03-07 03:30] VITALS: O2SAT 98
--- NOTE | 2025-03-07 03:35 | PC.NURSE ---
labs collected and sent.
[2025-03-07 03:40] LABS: IDNOW Serial# 08D9AD1C; Strep A Nucleic Acid Negative (Negative)
[2025-03-07 03:51] LABS: COVID-19 Test Negative (Negative); IDNOW Serial# 55D5AD1C; IDNOW Serial# 58CA691E; Influenza B2 Negative (Negative)
--- OUTSIDE RECORDS SUMMARY | 2025-03-07 04:15 | XMS_ITS | Clinical Summary ---
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 Role Phone Unavailable Primary Care Provider Unavailabl e Encounters Date Type Department Care Team Description 12/22/2024 Population Health Risk Score [facility] (C3) Department [address] [place] [address] Provider, Population Health Generic from Last 3 Months Social History Tobacco Use Types Packs/Day Years Used Date Smoking Tobacco: Never Assessed Comments Unknown Sex and Gender Information Value Date Recorded Sex Assigned at Not on file Legal Sex Female 9:22 PM EDT Gender Identity Not on file Sexual Orientation Not on file Plan of Treatment Health Maintenance Due Date Last Done Comments Depression Screening 1991 Lipid Panel 1991 SDOH Screening 1991 Disability Screening 1991 Alcohol/Substance Use Screening 2003 Tobacco Screening 2003 Family Planning (PISQ) 10/14/2006 Hepatitis C Screening 10/14/2009 Pap Smear 10/14/2012 Cervical Cancer Screening 10/14/2021 HPV/Cotest 10/14/2021 COVID-19 Vaccine ( season) 2025 09/22/2020, 09/02/2020 Influenza Vaccine (#1) 2025 , 03/11/2021, 05/24/2020, Additional history exists DTaP/Tdap/Td Vaccines (8 - Td or Tdap) 01/19/2031 01/19/2021, 07/13/2010, 04/23/2003, Additional history exists Zoster Vaccines (1 of 2) 10/14/2041 RSV Patients and Patients Aged 60 years or older (1 - 1-dose 75+ series) 10/14/2066 Hepatitis B Vaccines Completed 11/09/1992, 04/18/1992, 02/17/1992 HIB Vaccines Completed 01/17/1993, 01/01, 04/18/1992, Additional history exists IPV Vaccines Completed 11/12/1996, 02/03, 01/17/1993, Additional history exists HPV Vaccines Completed 04/26/2008, 07/04, 05/16/2007 Meningococcal Vaccine Completed 07/13/2010 HIV Screening Completed 03/26/2024, 03/04, 01/19/2021 Pneumococcal Vaccine: Pediatrics (0 to 5 Years) and At-Risk Patients (6 to 49) Years Aged Out 03/26/2024 No longer eligible based on patient's age to complete this topic Hepatitis A Vaccines Aged Out No long er eligible based on patient's age to complete this topic Meningococcal B Vaccine Aged Out No l onger eligible based on patient's age to complete this topic RSV under 20 months Aged Out No longe r eligible based on patient's age to complete this topic Rotavirus Vaccines Aged Out No longer eligible based on patient's age to complete this topic
--- OUTSIDE RECORDS SUMMARY | 2025-03-07 04:15 | XMS_ITS | Data Portability ---
Author Organization [facility], [facility] Address [address] [place] [address] Care Team Providers Care Boiling Off Winder Name Role Phone JACKIE NEWMAN Primary Care Provider Assessment Encounter Date Assessment Date Assessment LastModified by Organization Details LastModified Time 10/11/2023 10/11/2023 Foot and Ankle Follow-up Patient Note CC/Diagnosis: bilateral lateral column overload Symptom onset: months HPI: Felicitas presents for follow-up. Here today with a friend. Last seen in April 2023. At that visit she was diagnosed with right ankle extensor tendinitis. At that visit it was recommended that she undergo physical therapy and she was given an ankle brace. She did not bulk picker the brace and has not done physical therapy. She reports she has been working on home exercises. She has been using an Trevor wrap for pain control. Points to the lateral column of both feet as the area of most pain. Rates it as a 6 out of 10. 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 Here today to discuss treatment options. Past family history, medical history, social history, allergies, and review of systems has been reviewed, updated and are located in the patient's chart. PHYSICAL EXAM: Constitutional: Overweight individual in no acute distress Psychiatric: Alert and oriented Respiratory: Unlabored breathing Lymphatic: No lymphadenopathy in the foot/ankle Skin: No open wounds CV: Palpable pedal pulses Neuro: Light touch grossly intact MSK: Focused examination of the bilateral foot and ankle- On standing exam her ankle and hindfoot alignment is grossly appropriate. Mild pes planus. Equal bilaterally. No swelling or ecchymosis. No signs of trauma. No significant points of tenderness about the ankle, hindfoot, midfoot. No significant pain along the lateral column. She has supple ankle and hindfoot range of motion. She has stable ligamentous exam. 5 out of 5 peroneal strength. Motor exam- intact dorsiflexion/plant arflexion, inversion/eversion Sensory exam- reports sensation intact to light touch SP/DP/S/S/T distributions Palpable DP/PT pulses, foot warm and well perfused, appropriate capillary refill Calf is soft, supple, non-tender IMAGING: Prior weightbearing x-rays of the right foot reviewed. Appropriate alignment. No acute bony abnormality. ASSESSMENT: Bilateral foot lateral column overload PLAN: We reviewed her diagnosis, treatment today, plan moving forward. Today she presents wearing slides. I recommend for anyone with foot or ankle pain good supportive shoe wear and orthotics as needed. She was given a prescription for an ankle compression sleeve which can help with pain and swelling. I again reiterated to her that I think the biggest factor affecting her bilateral foot pain is her weight The best thing she can do to improve her foot pain at the end of a long day is to lose weight because the increase stress is causing her pain. She was given a prescription for physical therapy for bilateral foot range of motion, massage, desensitization. She may follow-up on an as-needed basis. Patient agrees with plan, all questions answered. [email or web address] Not available 10/11/2023 17:14:07 11/08/2023 11/08/2023 Foot and Ankle Follow-up Patient Note CC/Diagnosis: bilateral lateral column overload Symptom onset: months HPI: Felicitas presents for follow-up. She was last seen 4 weeks ago. Presents today for early follow-up because she reports she has new onset. Pain in the lateral forefoot. Denies inciting event or trauma. She has been ambulatory. Rates her pain as a 9 out of 10. Reports she has lost 30 pounds over recent months and a weight loss program. She has not yet started physical therapy. Presents today wearing crocs. No other complaints besides pain. 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 PHYSICAL EXAM: Constitutional: Overweight individual in no acute distress Psychiatric: Alert and oriented Respiratory: Unlabored breathing Lymphatic: No lymphadenopathy in the foot/ankle Skin: No open wounds CV: Palpable pedal pulses Neuro: Light touch grossly intact MSK: Focused examination of the bilateral foot and ankle- On standing exam her ankle and hindfoot alignment is grossly appropriate. Mild pes planus. Equal bilaterally. No swelling or ecchymosis. No signs of trauma. Today she is tender about the dorsal and plantar metatarsal heads of the left foot. Nontender over the right foot. Nontender over the remainder of the left foot or ankle. She is able to dorsiflex bilaterally at the ankle to about 10 degrees. Mildly positive Silfverskiold test. She has supple ankle and hindfoot range of motion. She has stable ligamentous exam. 5 out of 5 peroneal strength. Motor exam- intact dorsiflexion/plant arflexion, inversion/eversion Sensory exam- reports sensation intact to light touch SP/DP/S/S/T distributions Palpable DP/PT pulses, foot warm and well perfused, appropriate capillary refill Calf is soft, supple, non-tender IMAGING: X-Rays ordered, obtained, and reviewed at [facility]: 3 weightbearing x-rays of the left foot, 2 weightbearing x-rays left ankle, AP comparison view of the foot and ankle reveal intact symmetric mortise without evidence of instability. Mild pes planus. No acute bony abnormality. ASSESSMENT: Bilateral foot lateral column overload, left forefoot overload PLAN: We reviewed her diagnosis, treatment today, plan moving forward. Again reviewed the overall situation with her. 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 Emphasized the importance of an eccentric stretching program at home and formal physical therapy. Emphasized the importance of good supportive shoe wear. She routinely presents in crocs which are going to exacerbate her symptoms. Discussed the importance of a weight loss program. Her exam is actually very reassuring each time I met her. I think a significant portion of her symptoms are related to her weight. I again reemphasized this to her today. There is not an easy fix or solution and that it takes some time with weight loss to improve her symptoms. Plan to see her back in 3 months if her symptoms fail to improve. Otherwise she can follow-up on an as-needed basis. No x-rays at next visit. Patient agrees with the plan, all questions answered. [email or web address] Not available 11/08/2023 10:13:40 Plan of Treatment Reminders Order Date Submit Date Provider Last Modified By Organization Details Last Modified Time Details Appointments None recorded. Lab None recorded. Referral physical therapist referral - gastroc tightness forefoot overload 2023 024 [email or web address] Not available 4 07:59:13 physical therapist referral - bialteral foot pain; bilateral rom massage desensitz ation 2023 024 [email or web address] Not available 4 11:45:19 Procedures None recorded. Surgeries None recorded. Imaging XR, ankle, 3 or more view - ROOM 106 3 VIEWS [facility]KLE [facility] 2023 [facility]24 [facility], [address], [place], [address], 4 07:59:13 XR, foot, 2 view - ROOM 106 2 VIEWS LEFT FOOT [facility] [address], [place], [address], 4 07:59:13 XR, knee, 4 or more view 2023 024 [facility], [address], [place], [address], 4 09:31:58 Medication Orders None recorded. Patient TargetsNo targets recorded. Patient InstructionsNo instructions recorded. Reason for Referral Physical Therapist Referral for Plantar fascial fibromatosis bialteral foot pain; bilateral rom massage desensitzation desensitiztion Referring Physician: Saw Hairston, Orthopedic Surgery, Encounter Date: 10/11/2023 Physical Therapist Referral for Pain in left foot gastroc tightness forefoot overload gastroc tightness; forfoot overload Referring Physician: Saw Hairston, Orthopedic Surgery, Encounter Date: 11/08/2023 Results Created Date Observation Date Name Description Value Unit Range Abnormal Flag Note LastModifiedBy Organization Detail LastModifiedTime 10/30/19 24 10/30/2023 XR, knee, 4 or more view [email or web address]:/ [email or web address] ?Encry pted=s hAaTro YD8dLq bEUv6g %2BXZw aYqtaq 0bqfl% 2Fg9IQ a4ajBk vP9nXo QUaueC m3YtLR FvZlgJ JJ8mAn HZtai3 1m4403 AC0KvY nWHUqL eUC8mr 84%3D INTERFACE [facility] [address], [place], [address], 10/30/2023 15:47:35 10/30/19 24 10/30/2023 XR, knee, 4 or more view [email or web address] ?Encry pted=s hAaTro YD8dLq bEUv6g %2BXZw aYqtaq 0bqfl% 2Fg9IQ a4ajBk vP9nXo QUaueC m3YtLR FvZl JJ8[place] HZtai3 1m5911 AC0KvY nWHUqL eUC8mr 84%3D INTERFACE [facility] [address], [place], [address], 10/30/2023 15:47:37 11/08/19 24 11/08/2023 XR, ankle , 3 or more view [email or web address] ?Encry pted=s hAaTro YD8dLq bEUv6g %2BXZw aYqtaq 0bqfl% 2Fg9IQ a4ajBk vP9nXo QUaueC m3YtLR FvZl JJ8mAn HZtai3 6t6748 AC0Kua H%2BHU qbeUC8 mr84%3 D INTERFACE [facility] [address], [place], [address], 11/08/2023 09:30:55 11/08/19 24 11/08/2023 XR, ankle , 3 or more view [email or web address] ?Encry pted=s hAaTro YD8dLq bEUv6g %2BXZw aYqtaq 0bqfl% 2Fg9IQ a4ajBk vP9nXo QUaueC m3YtLR FvZlgJ JJ8mAn HZtai3 4j1996 AC0Kua H%2BHU qbeUC8 mr84%3 D INTERFACE [facility] [address], [place], [address], 11/08/2023 09:30:57 11/08/19 24 11/08/2023 XR, foot, 2 view [email or web address] ?Encry pted=s hAaTro YD8dLq bEUv6g %2BXZw aYqtaq 0bqfl% 2Fg9IQ a4ajBk vP9nXo QUaueC m3YtLR FvZlgJ JJ8mAn HZtai3 7l3595 AC0Kua H%2BHU qfeUC8 mr84%3 D INTERFACE [facility] [address], [place], [address], 11/08/2023 09:32:46 11/08/19 24 11/08/2023 XR, foot, 2 view [email or web address]:/ [email or web address] ?Encry pted=s hAaTro YD8dLq bEUv6g %2BXZw aYqtaq 0bqfl% 2Fg9IQ a4ajBk vP9nXo QUaueC m3YtLR FvZlgJ JJ8mAn HZtai3 4e9040 AC0Kua H%2BHU qfeUC8 mr84%3 D INTERFACE [facility] [address], [place], [address], 11/08/2023 09:32:48 02/01/20 24 08/07/2022 imagi ng/di agnos tic resul t No observ ation record ed. [email or web address] Not Available 01/03 05:40:11 02/01/20 24 09/30/2021 imagi ng/di agnos tic resul t No observ ation record ed. [email or web address] Available 01/03 05:40:23 02/01/20 24 11/12/2022 imagi ng/di agnos tic resul t No observ ation record ed. [email or web address] Available 01/03 05:40:33 02/01/20 24 07/21/2023 imagi ng/di agnos tic resul t No observ ation record ed. [email or web address] Available 01/03 05:40:45 02/01/2003/21/2022 imagi ng/di agnos tic resul t No observ ation record ed. [email or web address] Not Available 01/03 05:40:49 02/01/2003/21/2022 imagi ng/di agnos tic resul t No observ ation record ed. [email or web address] Available 01/03 05:40:54 02/01/20 24 2018 imagi ng/di agnos tic resul t No observ ation record ed. [email or web address] Available 01/03 05:41:36 02/01/20 24 2018 imagi ng/di agnos tic resul t No observ ation record ed. [email or web address] Available 01/03 05:41:36 02/01/2001/28/2019 imagi ng/di agnos tic resul t No observ ation record ed. [email or web address] Not Available 01/03 05:41:44 Result Notes Documentation Provider Name and Address Organization Details Recorded Time Xr, Knee, 4 Or More View : [email or web address] Encrypted=boOdGgmDL2oYfaK Uv6g%1JKVhcRaoue2mlvf%2Fg 8BGi3kjGnwJ9jXgXVctiEp0Zd QUFpOroTMZ5fXkRHjeg20v421 0PE9RiAnBHKlPhHA0gm66%3D Not Available [facility] 10/30/2023 15:4 7:35 Xr, Knee, 4 Or More View : [email or web address]? Encrypted=cqViWyqEK5sFcyU Uv6g%5YFGcqKaksl5gash%2Fg 3SZp3roWioI4iOwGYiqoQq2Zq QDGhEirRPQ8mDtXKwsd91n857 0BP1CmNkNZRcXwTT2gd53%3D Not Available [facility] 10/30/2023 15:4 7:37 Xr, Ankle, 3 Or More View : [email or web address]? Encrypted=whYiBudDT8uCkrX Uv6g%3RLEoaBwutr2rkld%2Fg 0XNl9bjHafL3aGjCGgecDl2Ra CDRjWliXMQ5vUkOLwkv03p055 1LD4TmhW%5UIUbmkJE6lr10%3 D Not Available [facility] 11/08/2023 09:30:56 Xr, Ankle, 3 Or More View : [email or web address]? Encrypted=toPcVesWV3aJogC Uv6g%7PDXkvOmzqd2zgwh%2Fg 1GJx8skPgbZ9nRqTFhtpKq8Fq OBTbEzrWUE7jPqTXqnw17z631 7KD6YshW%5OUNrkqKB2og05%3 D Not Available [facility] 11/08/2023 09:30:57 Xr, Foot, 2 View : [email or web address]? Encrypted=wkUdWjdNR3kDdpU Uv6g%5VKIsqKvlow4cgyv%2Fg 1QBm9dwGuvP2oYfFCrhjVb4Rh LPPlDmeVPN1mMxLSeyl85q749 4PW8IzpN%0AIKqmaMX7jv78%3 D Not Available [facility] 11/08/2023 09:32:46 Xr, Foot, 2 View : [email or web address]? Encrypted=soTsOshWD4mLkcD Uv6g%5GIKoyUzfwi7pqgx%2Fg 7SYf2vuUohW7kMxPLzufAd3Mt VQXnCulQIF1zPiYZvik95p797 4IH4VbzU%5AYNudgQN6rr85%3 D Not Available [facility] 11/08/2023 09:32:48 Problems Name Problem SNOMED Code Status Onset Date Resolution Date Notes Provider Name and Address Organization Details Recorded Time No complaint s 046058668 Active Status: 'I'; Not Available [facility] 4 09:11:30 Tendiniti s of right posterior tibial tendon 188958024205 102 Active 2018 Problem Code: M76.821; Problem Code Type: ICD-10; Status: 'A'; Not Available [facility] 4 10:58:37 Tendiniti s of left posterior tibial tendon 362394742174 100 Active 2018 Problem Code: M76.822; Problem Code Type: ICD-10; Status: 'A'; Not Available [facility] 4 10:58:37 Plantar fascial fibromato sis 79073986 Active 2018 Problem Code: M72.2; Problem Code Type: ICD-10; Status: 'A'; Not Available [facility] 4 10:58:37 Contractu re of muscle of right lower leg 303298001934 106 Active 2018 Problem Code: M62.461; Problem Code Type: ICD-10; Status: 'A'; Not Available [facility] 4 10:58:38 Primary gonarthro sis, bilateral 961889954 Active 2024 Miko Diez PA-C [address] [facility] [address], [place], [address] , [facility] 5 08:45:37 Problem Notes None recorded. Procedures Surgical History Date Name Laterality Status Provider Name and Address Organization Details Recorded Time Knee Surgery completed JEREMY MALCOLM [place] - [facility] 10/30/2023 15:47:50 Arthroplasty completed JEREMY MALCOLM [place] - [facility] 10/30/2023 15:47:50 Imaging Results None recorded. Procedure Notes None recorded. Medical Equipment None Reported. Allergies Allergen ID Allergen Name Allergen Category Reaction Reaction Severity Criticality Documentation Date Start Date Code Code System Note Provider Name and Address Organization Details Recorded Time 28415 amoxicill in trihydrat e medicatio n Not available Not available Not available 08/05/20232016 40335 8 RxNorm Aller gyRea ction : 'Skin React ion'; Not Available [facility] 4 11:53:12 16201 latex environme nt,medica tion Not available Not available Not available 08/05/20232016 29466 91 RxNorm Aller gyRea ction : 'Skin React ion'; Not Available [facility] 4 11:53:12 Medications Name Sig Start Date Stop Date Status Note LastModified by Organization Details LastModified Time cyclobenzap rine 10 mg tablet TAKE 1 TABLET BY MOUTH AT BEDTIME active Not Available Not Available No t Available medroxyprog esterone 10 mg tablet TAKE 1 TABLET BY MOUTH FOR 10 DAYS STARTING ON DAY 25 OF THE CYCLE active Not Available Not Available No t Available atorvastati n 40 mg tablet TAKE 1 TABLET BY MOUTH NIGHTLY AT BEDTIME FOR CHOLESTER OL active Not Available Not Available No t Available metformin 500 mg tablet TAKE 1 TABLET BY MOUTH 2 TIMES DAILY WITH A MEAL FOR PREDIABET ES active Not Available Not Available No t Available acetaminoph en 325 mg tablet TAKE 3 TABLETS BY MOUTH EVERY 6 HOURS active Not Available Not Available No t Available oxybutynin chloride ER 15 mg tablet,exte nded release 24 hr TAKE 1 TABLET BY MOUTH EVERY DAY active Not Available Not Available No t Available clindamycin HCl 300 mg capsule TAKE 1 CAPSULE BY MOUTH EVERY 6 HOURS active Not Available Not Available No t Available Apri 0.15 mg-0.03 mg tablet TAKE 1 TABLET BY MOUTH EVERY DAY active Not Available Not Available No t Available aspirin 325 mg tablet TAKE 1 TABLET BY MOUTH DAILY POST OPERATIVE LY active Not Available Not Available No t Available fluconazole 150 mg tablet TAKE 1 TABLET BY MOUTH ONCE FOR 1 DOSE TAKE 2ND TABLET IF STILL SYMPTOMAT IC AFTER 72 HOURS. active Not Available Not Available No t Available metoprolol succinate ER 50 mg tablet,exte nded release 24 hr TAKE 1 TABLET BY MOUTH EVERY DAY active Not Available Not Available No t Available ondansetron HCl 8 mg tablet TAKE 1 TABLET BY MOUTH EVERY 8 HOURS NEEDED FOR NAUSEA FOR UP TO 7 DAYS. active Not Available Not Available No t Available sucralfate 1 gram tablet TAKE 1 TABLET BY MOUTH FOUR TIMES A DAY active Not Available Not Available No t Available FreeStyle Lancets 28 gauge FREESTYLE LITE LANCETS, CHECK SUGAR DAILY. DX E11.65 active Not Available Not Available No t Available sertraline 100 mg tablet TAKE 1 TABLET BY MOUTH EVERY DAY active Not Available Not Available No t Available moxifloxaci n 400 mg tablet TAKE 1 TABLET BY MOUTH EVERY DAY FOR 7 DAYS active Not Available Not Available No t Available metronidazo le 500 mg tablet TAKE 1 TABLET BY MOUTH EVERY 12 HOURS FOR 7 DAYS active Not Available Not Available No t Available ciprofloxac in 500 mg tablet TAKE 1 TABLET BY MOUTH EVERY 12 HOURS FOR 7 DAYS active Not Available Not Available No t Available omeprazole 40 mg capsule,del ayed release TAKE 1 CAPSULE BY MOUTH EVERY MORNING active Not Available Not Available No t Available tramadol 50 mg tablet TAKE 1-2 TABLETS BY MOUTH EVERY 6 HOURS NEEDED FOR PAIN active Not Available Not Available No t Available amitriptyli ne 50 mg tablet TAKE 2 TABLETS BY MOUTH AT BEDTIME active Not Available Not Available No t Available acetaminoph en 500 mg tablet TAKE 1 TABLET BY MOUTH EVERY 4 TO 6 HOURS NEEDED active Not Available Not Available No t Available estradiol 1 mg tablet TAKE 1 TABLET BY MOUTH EVERY DAY active Not Available Not Available No t Available trazodone 100 mg tablet TAKE 1 TABLET BY MOUTH NIGHTLY AT BEDTIME FOR SLEEP active Not Available Not Available No t Available dicyclomine 20 mg tablet TAKE 1 TABLET BY MOUTH 3 TIMES DAILY NEEDED FOR OTHER REASON (ABDOMINA L PAIN/CRAM P) active Not Available Not Available No t Available metformin 1,000 mg tablet TAKE 1 TABLET BY MOUTH TWICE A DAY WITH MEALS FOR DIABETES active Not Available Not Available No t Available naproxen 500 mg tablet,glory yed release TAKE 1 TABLET BY MOUTH TWICE A DAY WITH A MEAL active Not Available Not Available No t Available lidocaine 5 % topical patch PLACE 1 PATCH ONTO THE AFFECTED AREA DAILY FOR A MAX OF 12 HOURS, FOLLOWED BY REMOVAL FOR 12 HOURS. active Not Available Not Available No t Available promethazin e 25 mg tablet TAKE 1 TABLET BY MOUTH EVERY 6 HOURS NEEDED FOR NAUSEA. active Not Available Not Available No t Available hydrochloro thiazide 12.5 mg capsule TAKE 1 CAPSULE BY MOUTH EVERY DAY active Not Available Not Available No t Available docusate sodium 100 mg capsule TAKE 1 CAPSULE BY MOUTH TWICE A DAY NEEDED FOR CONSTIPAT ION active Not Available Not Available No t Available oxybutynin chloride ER 5 mg tablet,exte nded release 24 hr TAKE 1 TABLET BY MOUTH EVERY DAY active Not Available Not Available No t Available aspirin 81 mg chewable tablet CHEW 2 TABLETS DAILY. START AT 12 WEEKS OF CONTINUE UNTIL 2 WEEKS POSTPARTU M active Not Available Not Available No t Available alcohol swabs USE EVERY DAY DIRECTED active Not Available Not Available No t Available metoprolol succinate ER 25 mg tablet,exte nded release 24 hr TAKE 1 TABLET BY MOUTH EVERY DAY FOR HEART RATE active Not Available Not Available No t Available ibuprofen 600 mg tablet TAKE 1 TABLET BY MOUTH EVERY 6 TO 8 HOURS NEEDED active Not Available Not Available No t Available zolpidem 10 mg tablet TAKE 1/2 TO 1 TABLET BY MOUTH AT BEDTIME NEEDED FOR SLEEP active Not Available Not Available No t Available norethindro ne (contracept misael) 0.35 mg tablet TAKE 1 TABLET BY MOUTH 1 TIME EACH DAY. active Not Available Not Available No t Available ondansetron 4 mg disintegrat ing tablet TAKE 1 TABLET BY MOUTH THREE TIMES A DAY active Not Available Not Available No t Available metronidazo le 0.75 % topical gel APPLY TO AFFECTED AREA EVERY DAY FOR 5 DAYS active Not Available Not Available No t Available buspirone 15 mg tablet TAKE 1 TABLET BY MOUTH THREE TIMES A DAY NEEDED FOR ANXIETY active Not Available Not Available No t Available oxycodone 5 mg tablet TAKE 1 TABLET EVERY 6 HOURS NEEDED FOR BREAKTHRO UGH PAIN. active Not Available Not Available No t Available azithromyci n 500 mg tablet TAKE 2 TABLETS BY MOUTH ONCE DAILY FOR 1 DAY FOR HER SEX PARTNER active Not Available Not Available No t Available chlorhexidi ne gluconate 0.12 % mouthwash PLEASE SEE ATTACHED FOR DETAILED DIRECTION S active Not Available Not Available No t Available Lantus Solostar U-100 Insulin 100 unit/mL (3 mL) subcutaneou s pen INJECT 30 UNITS INTO THE SKIN ONCE DAILY active Not Available Not Available No t Available cholecalcif raquel (vitamin D3) 50 mcg (2,000 unit) capsule TAKE 1 CAPSULE BY MOUTH EVERY DAY active Not Available Not Available No t Available oxycodone HCl-oxycodo ne-ASA as directed take 1 tab q 6h prn painDO NOT DRIVE WHILE TAKING THIS MEDICATIO N 04/12 completed Statu s: 'Disc ontin ued'; Not Available Not Available Not Available Trulicity 0.75 mg/0.5 mL subcutaneou s pen injector INJECT 1 PEN SUBCUTANE OUSLY ONE TIME PER WEEK active Not Available Not Available No t Available FreeStyle Precision Axel Strips USE TO TEST BLOOD GLUCOSE AT LEAST 3 TIMES DAILY active Not Available Not Available No t Available BD Casie 2nd Gen Pen Needle 32 gauge x 5/32 DIRECTED EVERY DAY. active Not Available Not Available No t Available FreeStyle Maylin 3 Sensor device REPLACE SENSOR EVERY 15 DAYS active Not Available Not Available No t Available FreeStyle Maylin 3 [place] USE TO TEST BLOOD GLUCOSE AT LEAST 3 TIMES DAILY. (FREESTYL E MAYLIN 3) active Not Available Not Available No t Available Vitals Date Recorded Body height Body mass index (BMI) Body weight Provider Name and Address Organization Details Last Updated DateTime 10/11/2023 165.1 cm 56.9 kg/m2 245254.59 g Debra Andrade [facility] 10/11/2023 14:40:21 Date Recorded Body height Body mass index (BMI) Body weight Provider Name and Address Organization Details Last Updated DateTime 10/30/2023 165.1 cm 56.9 kg/m2 463719.59 g JEREMY MALCOLM [facility] 10/30/2023 15:47:24 Date Recorded Body height Body mass index (BMI) Body weight Provider Name and Address Organization Details Last Updated DateTime 11/08/2023 165.1 cm 56.9 kg/m2 758563.59 g Debra Andrade [facility] 11/08/2023 09:20:52 Date Recorded Body weight Body mass index (BMI) Body height Provider Name and Address Organization Details Last Updated DateTime 11/25/2024 753650.97 g 53.1 kg/m2 165.1 cm Luz Marina Storey [facility] 11/25/2024 09:31:38 Social History Question Answer Notes LastModified by Organizat ion Details LastModified Time Tobacco Smoking Status Former Smoker JEREMY gomez [place] - [facility] 10/30/2023 15:47:49 When Did You Quit Smoking? 1-5yearssin celastcibasia ette [email or web address] Information not available 10/30/2023 What Is Your Relationship Status? Single [email or web address] Information not available 10/30/2023 How Many Years Have You Smoked Tobacco? 8 [email or web address] Information not available 10/30/2023 Sex: Unknown Functional Status Question Answer Note LastModified by Organizat ion Details LastModified Time How many times per week do you consume alcohol? Less than 1 time per week [email or web address] Information not available 10/30/2023 Do you use any illicit or recreational drugs? No [email or web address] Information not available 10/30/2023 Do you or have you ever used any other forms of tobacco or nicotine? No [email or web address] Information not available 10/30/2023 Do you or have you ever used e-cigarettes or vape? Never used electronic cigarettes [email or web address] Information not available 10/30/2023 Mental Status None recorded. Family History Nothing Reported. Medical History Condition Response Diabetes Y Autoimmune disease Y Anxiety/Depression Y Acid Reflux (GERD) Y Arrhythmia Y Arthritis Y Hypertension Y Sleep Apnea Y Gynecological HistoryNo gynecological history recorded. Obstetrics History GPAL:G 0 P 0 0 0 0 Past Encounters Encounter ID Performer Location Encounter Start Date Encounter Closed Date Diagnosis/Indication Diagnosis SNOMED-CT Code Diagnosis ICD10 Code Diagnosis IMO Codes Diagnosis Note [id number] [facility] [address] [place] [address] 10/30/2023 15:35:27 11/08/2023 09:31:58 Pain of right knee joint 4924027277 27471 M25.561 Bilateral osteoarthritis of knees [id number] 21068 M17.0 [id number] MD [facility] [address] [place] [address] 10/11/2023 14:33:53 11/05/2023 11:45:19 Plantar fascial fibromatosis 01408789 M72.2 [id number] Saw Hairston MD [facility] [address] [place] [address] 11/08/2023 09:10:46 12/17/2023 07:59:13 Pain in left foot [id number] 07711 M79.672 Plantar fa scial fibromatosis 40325340 M72.2 [id number] [facility] [address] [place] [address] 11/25/2024 09:19:37 12/01/2024 10:30:18 Primary gonarthrosis, bilateral 370864323 M17.0 [id number] Health Concerns Section Related Observation LastModified by Organization Detai ls LastModified Time None Recorded Concern Status LastModified by Organization Details LastModified Time None Recorded Advance Directives Directive None Recorded Payers Insurance Date Sequence Insurance Name Policy Number Policy Blackwell Covered Member ID Blackwell Member ID Guarantor Name 12/01/2024 1 [place] [facility] Felicitas Matute Adams [id number] Felicitas Juju Adams Notes Date Note Type Note Provider Name and Address Organization Details Recorded Time 10/30/2023 text/html I am seeing the patient today under the supervision of Dr. Killian who was available but who did not see the patient.HPI: Felicitas is a 33-year-old female history of bilateral knee issues including arthritis. 2 previous left knee arthroscopies and one on the right. She is reporting left greater than right knee pain with most activities but especially with bending and loading activities. She feels catching snapping and locking. Considerable achiness and stiffness on a constant basis. She has trialed extensive nonsurgical measures including but not limited to cortisone injection, topical gel, oral NSAIDs, Tylenol, heat, TENS and other measures.Past family, medical, social history and review of systems has been reviewed, updated and signed by me and is located in the patient s chart. Patient has some recent weight loss and has been approved for weight loss surgery.Examination: e patient is well appearing and in no apparent distress. Alert and oriented x3. Gait is symmetric. Both knees are examined. No deformity or joint effusion. Range of motion +5 extension to 135 flexion. Irritability globally about the knees.X-rays ordered, obtained and reviewed today at [facility] 3 views of both knees including standing AP, lateral and sunrise views show some early to moderate arthritic changes but not end-stage disease.Impression: Bilateral chondromalacia, bilateral knee arthritis.Plan: Treatment options once again discussed. Unfortunately admitted measures of clear benefit. Reviewed surgical and nonsurgical measures. No indication for arthroscopy. 2 young for knee replacement. She will work on weight loss program. Recheck in office p.r.n. Miko Diez PA-C [address], [place], [address], [facility] 10/30/2023 16:21:16 11/25/2024 text/html I am seeing the patient today under the supervision of Dr. Lehman who was available but who did not see the patient. 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 She has a known history of early onset severe osteoarthritis of both knees. Conservative management has included oral medication naproxen, topical lidocaine, use of a TENS unit and avoidance of aggravating activities. She reports significant difficulty with walking and standing for long periods of time. She feels swelling at times. Past family, medical, social history and review of systems has been reviewed, updated and signed by me and is located in the patient's chart. Patient with history of significant obesity Examination: Both knees are evaluated today. Difficult assessment due to patient's size and girth. Unable to assess any significant joint effusion. There is globalized irritability and tenderness. Patient has difficulty arising from sitting and with ambulating. When she is walking she has a fairly normal gait. X-rays from previous office visit reviewed today at [facility]. There is grade 4 arthritic changes of both knees with tricompartmental involvement. Impression: Severe osteoarthritis in a 34-year-old female Plan: Extremely difficult management situation for this patient. She is 34 and much too early for surgical intervention. Nonsurgical treatment options were discussed. She is not interested in corticosteroid injection at this time. We discussed use of Voltaren gel. Turmeric also discussed. Continue with periodic naproxen and lidocaine. Recheck as needed Miko Diez PA-C [address], [place], [address], [facility] 11/26/2024 08:46:24 OBGyn Episode No OBEpisode recorded.
--- OUTSIDE RECORDS SUMMARY | 2025-03-07 04:15 | XMS_ITS | Clinical Summary ---
Author Organization [facility] Address [address] [place] [address] Care Team Providers Care C D Area Supervisor Name Role Phone Unavailable Primary Care Provider Unavailabl e Surgical History Surgery Date Site/Laterality Comments ESOPHAGOGASTRODUODENOSCOPY 05/07/12 PROCEDURE: SD ESOPHAGOGASTRODUODENOSCOPY TRANSORAL DIAGNOSTIC; COMMENT: normal OVARIAN CYST REMOVAL 04/14, 11/11 PROCEDURE: SD OVARIAN CYSTECTOMY UNI/BI; COMMENT: right CHOLECYSTECTOMY December 2013 PROCEDURE: HISTORICAL CHOLECYSTECTOMY Medical History Medical History Date Comments Ovarian cyst DX:Ovarian cyst Childhood obesity 07/13/2010 DX:Childhood o besity Headache(784.0) 03/11/2012 DX:Headache(784. 0) Gastroesophageal reflux 10/08/2014 DX:Gastr oesophageal reflux Hiatal hernia 12/13/2014 DX:Hiatal hernia IBS (irritable bowel syndrome) 03/11/2012 D X:IBS (irritable bowel syndrome) Migraine 03/11/2012 DX:Migraine Family History Medical History Relation Name Comments Lung cancer Father hypertension Hypertension Maternal Grandfather Hypertension Maternal Grandmother alzehim ers Diabetes Mother hypertension, a rthritis, stomach cancer Other: sarcoma Sister 1 Relation Name Status Comments Brother 1 Alive 1988 EDER Brother 2 Alive 07/12/1995 alvino Brother 3 Alive 10/11/1997 Father 03/05/37 Maternal Grandfather Maternal Grandmother Alive Mother 02/16/65 Paternal Grandfather Paternal Grandmother Sister 1 Sister 2 Alive 06/04 Social History Tobacco Use Types Packs/Day Years Used Date Smoking Tobacco: Former Cigarettes Q uit: 03/07/2012 Smokeless Tobacco: Former Alcohol Use Standard Drinks/Week Comments No 0 (1 standard drink = 0.6 oz pur e alcohol) Comments Unknown Sex and Gender Information Value Date Recorded Sex Assigned at Not on file Legal Sex Female 4:19 PM EST Gender Identity Not on file Sexual Orientation Not on file Obstetrics History Plan of Treatment Health Maintenance Due Date Last Done Comments Cervical Cancer Screening: Pap Smear 10/14/2012 DTaP,Tdap,and Td Vaccines (8 - Td or Tdap) 07/13/2020 07/13/2010, 04/23/2003, 11/12/1996, Additional history exists Cholesterol Screening (Lipid Panel) 05/02/2022 HIV Screening 05/02/2022 Hepatitis C Screening 05/02/2022 Social Influencers of Health Screening 05/02/2022 Depression Screening 06/03/2024 COVID-19 Vaccine ( season) 2025 Influenza Vaccine (#1) 2025 04/13/2015 RSV Immunization Adult Patients (1 - 1-dose 75+ series) 10/14/2066 Hepatitis B Vaccines Completed 11/09/1992, 04/18/1992, 02/17/1992 HIB Vaccines Completed 01/17/1993, 04/03, 02/17/1992, Additional history exists IPV Vaccines Completed 11/12/1996, 02/03, 01/17/1993, Additional history exists MMR Vaccines Completed 11/12/1996, 01/17/1993 HPV Vaccines Completed 04/26/2008, 07/04, 05/16/2007 Meningococcal ACWY Vaccine Completed 07/13/2010 Varicella Vaccines Completed 07/13/2010, 05/01/2004 Hepatitis A Vaccines Aged Out No long er eligible based on patient's age to complete this topic Meningococcal B Vaccine Aged Out No l onger eligible based on patient's age to complete this topic Pneumococcal Vaccine: Pediatrics (0 to 5 Years) and At-Risk Patients (6 to 49 Years) Aged Out No longer eligible based on patient's age to complete this topic RSV Immunization Patients Under 20 months Aged Out No longer eligible based on patient's age to complete this topic
--- NOTE | 2025-03-07 05:00 | PC.NURSE ---
provider into assess pt, will medicate per mar, no respiratory distress at this time, pt oob to bathroom with a steady gait.
--- NOTE | 2025-03-07 05:00 | ED.GENADULT ---
HPI - General Adult General Chief complaint: Upper Respiratory Symptoms Stated complaint: Sinus Infection, Dyspnea Time Seen by Provider: 03/07/25 03:57 Source: patient Limitations: no limitations History of Present Illness ED Provider: Mary Ann Cárdenas PA-C HPI narrative: 34-year-old female presents with multiple complaints. Patient has had various cough and cold symptoms for 2 weeks. Associated dry repetitive cough, sore throat, sinus pressure chills and left ear pressure. Patient was seen at urgent Care, she screen negative for COVID and strep throat. She is currently 4 months . Denies fever. Related Data Home Medications ?Medication ?Instructions ?Recorded ?Confirmed amitriptyline 50 mg tablet 50 mg PO DAILY 03/16/21 04/26/21 metformin 500 mg tablet 500 mg PO TID 03/16/21 04/26/21 metoprolol tartrate 25 mg tablet 25 mg PO DAILY 03/16/21 04/26/21 omeprazole 40 mg capsule,delayed 40 mg PO DAILY 03/16/21 04/26/21 release Previous Rx's ?Medication ?Instructions ?Recorded ciprofloxacin HCl 500 mg tablet 500 mg PO BID #20 tabs 07/07/20 (Cipro) metronidazole 500 mg tablet 500 mg PO BID #20 tabs 07/07/20 (Flagyl) oxycodone 5 mg capsule 5 mg PO Q8H PRN pain #10 caps 07/07/20 azithromycin 250 mg tablet 250 mg PO DAILY 4 days #4 tabs 03/07/25 fluticasone propionate 50 2 spray intranasal DAILY PRN nasal 03/07/25 mcg/actuation nasal congestion #16 grams spray,suspension (Flonase Allergy Relief) Allergies Allergy/AdvReac Type Severity Reaction Status Date / Time amoxicillin Allergy Severe Anaphylaxis Verified 03/07/25 03:14 banana Allergy Severe Anaphylaxis Verified 03/07/25 03:14 latex Allergy Severe Anaphylaxis Verified 03/07/25 03:14 Review of Systems Review of Systems: Yes all other systems are reviewed and are negative Constitutional: Constitutional: Denies chills, Denies fatigue and Denies fever(s) ENT: Reports otalgia, Reports sinus pressure and Reports sore throat Cardiovascular: Cardiovascular: Denies chest pain and Denies dyspnea Respiratory: Respiratory: Reports cough and Denies dyspnea Gastrointestinal: Gastrointestinal: Denies nausea and Denies vomiting Endocrine: Endocrine: Denies fatigue PMFSH Past Medical History Attestation statement: The following information was validated with the patient. Medical History (Updated 03/08/25 @ 00:00 by Jose J Snow) Herniated intervertebral disc of lumbar spine Fibromyalgia PCOS (polycystic ovarian syndrome) Hiatal hernia Ovarian cyst Surgical History Hx of section Hx of cholecystectomy Hx of removal of cyst Hx of endoscopy Hx of colonoscopy Family History Family History Mother No problems noted. Father No problems noted. Brother No problems noted. Brother No problems noted. Brother No problems noted. Brother No problems noted. Brother No problems noted. Brother No problems noted. Brother No problems noted. Brother No problems noted. Sister No problems noted. Sister No problems noted. Sister No problems noted. Sister No problems noted. Sister No problems noted. Sister No problems noted. Son No problems noted. Social History Social History Alcohol intake: current Alcohol intake frequency: does not drink Smoked in Last 30 Days: No Use of substances other than those prescribed or required for medical reasons: No Substance Use Type: Marijuana Advance Directives: No Advance Directives Information Provided: Yes Do you have a plan to hurt others: No Plan Patient : Yes Physical Exam ED Vital Signs: Vital Signs - 24 hr 03/07/25 03:09 03/07/25 03:30 Temperature 97.9 F Pulse Rate 92 Respiratory Rate 16 Blood Pressure 128/73 Pulse Oximetry 98 98 Oxygen Delivery Method Room Air Room Air BMI result Body Mass Index 52.1 Const Other: Alert Orientation/consciousness: patient oriented x3 HENMT Other: Left tragal tenderness, left TM is opaque with the overlying erythema, the entire exam was painful, no erythema or exudate noted an external ear canal, the right TM is translucent without erythema. 0 P mildly erythematous, uvula midline, no sublingual fluctuance no swelling inferior to the jawline. Resp Other: Nonlabored respirations, lungs clear to auscultate Cardio Other: Normal peripheral perfusion Skin Other: Warm dry no rash Neuro General: patient oriented x3, gait normal, no focal motor deficits and CN's II-XI intact bilaterally Psych Other: Cooperative Medications Administered Discontinued Medications Generic Name Dose Route Start Last Admin Trade Name Derik PRN Reason Stop Dose Admin Azithromycin 500 mg 03/07/25 04:55 03/07/25 05:01 Azithromycin 500 Mg Tablet PO 03/07/25 04:56 500 mg ONCE ONE Administration Medical Decision Making Medical Decision Making [facility] Narrative: 34-year-old female presents with multiple complaints. Patient has had various cough and cold symptoms for 2 weeks. Associated dry repetitive cough, sore throat, sinus pressure chills and left ear pressure. Patient was seen at urgent Care, she screen negative for COVID and strep throat. She is currently 4 months . Denies fever. No relevant chronic issues History: Per patient I have considered the following differential diagnoses: Strep pharyngitis, RPA, BATTER MIXER HELPER, viral syndrome, om, OE, serous otitis Plan: Patient has evidence of left otitis media, we will place on antibiotics. Viral panel strep screen repeated at triage. To note she has no exam findings consistent with a RPA or BATTER MIXER HELPER. I have independently reviewed the following tests: Labs: Viral panel negative, strep screen negative Differential Diagnosis Differential Diagnoses: The differential diagnosis associated with the presentation includes See medical decision-making Admission/Observation Consideration of admission/observation: Escalation of care including admission/observation considered Not applicable Lab Data [facility] Lab Attestation statement: I reviewed the patient's lab results. Labs: Lab Results 03/07/25 Range/Units 03:26 COVID-19 (QUINCY) Negative (Negative) COVID-19 Clin Com See Note Influenza Type A (MICHAEL) Negative (Negative) Influenza Type B (MICHAEL) Negative (Negative) Influenza A & B Note See Note S. pyogenes GrpA MICHAEL Negative (Negative) Discharge Plan Discharge Clinical Impression: Acute left otitis media Patient Disposition: Home, Self-Care Instructions: Ear Infection (ED) Additional Instructions: You are being treated for a left-sided inner ear infection. See home care instructions. Take the azithromycin as directed. Use the Flonase as needed for nasal congestion, this should also indirectly help the inner ear congestion. Be sure to maintain follow up with your ledge man and primary care provider. Prescriptions: New azithromycin 250 mg tablet 250 mg PO DAILY 4 Days Qty: 4 0RF Rx Instructions: start on day 2 of therapy fluticasone propionate [Flonase Allergy Relief] 50 mcg/actuation spray,suspension 2 spray intranasal DAILY PRN (Reason: nasal congestion) Qty: 16 0RF Rx Instructions: administer into each nostril No Action ciprofloxacin HCl [Cipro] 500 mg tablet 500 mg PO BID Qty: 20 0RF metronidazole [Flagyl] 500 mg tablet 500 mg PO BID Qty: 20 0RF oxycodone 5 mg capsule 5 mg PO Q8H PRN (Reason: pain) Qty: 10 0RF amitriptyline 50 mg tablet 50 mg PO DAILY omeprazole 40 mg capsule,delayed release(DR/EC) 40 mg PO DAILY metoprolol tartrate 25 mg tablet 25 mg PO DAILY metformin 500 mg tablet 500 mg PO TID Interventions: ED Discharge Assessment Last Done: 03/07/25 05:14 Discharge Date/Time: 03/07/25 05:18 Print Language: Divehi
--- NOTE | 2025-03-07 05:13 | PC.NURSE ---
Reviewed discharge instructions with pt, pt verbalized understanding, no sign of distresss.
[2025-03-07 05:14] VITALS: BP 120/70; PULSE 89; RESP 20; TEMP 36.7; O2SAT 98
== END 2025-03-07 05:18 | disposition home or self-care (01) ==
PROVIDERS: Emergency Provider Emergency Medicine
DX: O99.212 Obesity complicating pregnancy, second trimester (principal); E66.01 Morbid (severe) obesity due to excess calories; H66.92 Otitis media, unspecified, left ear
CPT/HCPCS: 87502; 87635; 87651; 99283; 99284